=== PATIENT | female | born 1980 | race Caucasian/White ===

== ENCOUNTER 2016-03-09 17:38 | Emergency (ER) | payer SELFPAY ==
[~2016-03-09] VITALS: Ht 167.6 cm; Wt 59.1 kg
[2016-03-09 17:39] VITALS: BP 142/83; PULSE 81; RESP 15; TEMP 98.1; O2SAT 98
--- NOTE | 2016-03-09 18:19 | PD ---
HPI Chief Complaint: Psychiatric Symptoms Time Seen by Provider: 18:18 Travel History International Travel<30 days: No Contact w/Intl Traveler<30days: No Traveled to known affect area: No History of Present Illness HPI 35-year-old female with PMH of bipolar, anxiety, depression, IVDA presents to the ED for voluntary psychiatric evaluation. Patient endorses increasing anxiety, worsening over the last 3 days. She denies suicidal or homicidal ideation. She states that she has been out of her psychiatric medications for approximately a month. She endorses a recent episode of drug use relapse, attempting to inject meth into her right antecubital area. She denies headache , dizziness, fever, chills, testing, abdominal pain, nausea, vomiting, dysuria, back pain. Unsure of the last LMP. PFSH Past Medical History ?: Not LMP: 02/07/2016 Social History Tobacco Use: Yes Substance Use: Yes Allergies-Medications (Allergen,Severity, Reaction): Coded Allergies: No Known Allergies (Unverified , 03/09/16) Reported Meds & Prescriptions Reported Meds & Active Scripts Active Bactrim DS (Sulfamethoxazole-Trimethoprim) 800-160 Mg Tab 1 Tab PO BID Reported Prilosec (Omeprazole) 20 Mg Cap 20 Mg PO DAILY Advair Diskus Inh (Fluticasone-Salmeterol Inh) 250-50 Mcg/Blist Aer 1 Puff INH BID Rinse mouth after use. Trazodone (Trazodone HCl) 100 Mg Tab 100 Mg PO HS Prozac (Fluoxetine HCl) 20 Mg Cap 20 Mg PO DAILY Lisinopril 10 Mg Tab 10 Mg PO DAILY Gabapentin 600 Mg Tab 600 Mg PO QID Review of Systems Except as stated in HPI: all other systems reviewed are Neg Physical Exam Narrative GENERAL: Well-nourished, well-developed anxious white female in mild distress. PSYCHIATRIC: No delusional thought processes. No hallucinations. Anxious, restless. SKIN: Warm and dry. Multiple tattoos. The patient has sunburned cheeks. There is a single puncture wound with surrounding bruising just distal to the right antecubital space. Mildly indurated. No fluctuance. Erythema of the dorsal aspect of bilateral hands, localized over the MP joints. HEAD: Normocephalic. EYES: No scleral icterus. No injection or drainage. NECK: Supple, trachea midline. No JVD or lymphadenopathy. DENTAL: Multiple dental caries in the visible teeth. CARDIOVASCULAR: Regular rate and rhythm without murmurs, gallops, or rubs. 2+ DP and radial pulses bilaterally. RESPIRATORY: Breath sounds equal bilaterally. No accessory muscle use. GASTROINTESTINAL: Abdomen soft, non-tender, nondistended. Active bowel sounds. MUSCULOSKELETAL: No cyanosis, or edema. Patient maintains active flexion and extension of the fingers of bilateral hands. Sensation intact to light touch distally. Cap refill less than 2 seconds. The patient is ambulatory, moves extremities spontaneously. BACK: Nontender without obvious deformity. No CVA tenderness. Data Data Last Documented VS Vital Signs Date Time Temp Pulse Resp B/P Pulse Ox O2 Delivery O2 Flow Rate FiO2 03/09/16 17:39 98.1 81 15 142/83 98 Orders Complete Blood Count With Diff (03/09/16 17:51) Comprehensive Metabolic Panel (03/09/16 17:51) Urinalysis - C+S If Indicated (03/09/16 17:51) Drug Screen, Random Urine (03/09/16 17:51) Alcohol (Ethanol) (03/09/16 17:51) Psych Screen (03/09/16 17:51) Lorazepam (Ativan) (03/09/16 18:30) Ed Urine Pregnancytest Poc (03/09/16 18:30) Urine Culture (03/09/16 18:10) Sulfamet-Trimeth Ds 800-160 Mg (Bactrim (03/09/16 20:45) Labs Laboratory Tests Test 03/09/16 03/09/16 18:10 19:25 Urine Color YELLOW Urine Turbidity HAZY Urine pH 6.0 Urine Specific [place] 1.031 Urine Protein TRACE mg/dL Urine Glucose (UA) NEG mg/dL Urine Ketones 10 mg/dL Urine Occult Blood MOD Urine Nitrite NEG Urine Bilirubin NEG Urine Urobilinogen 2.0 MG/DL Urine Leukocyte Esterase SMALL Urine RBC 6 /hpf Urine WBC 9 /hpf Urine Squamous Epithelial 3 /hpf Cells Urine Bacteria RARE /hpf Urine Mucus MANY /lpf Microscopic Urinalysis Comment CULTURE INDICATED White Blood Count 11.3 TH/MM3 Red Blood Count 4.41 MIL/MM3 Hemoglobin 13.0 GM/DL Hematocrit 38.3 % Mean Corpuscular Volume 86.8 FL Mean Corpuscular Hemoglobin 29.4 PG Mean Corpuscular Hemoglobin 33.9 % Concent Red Cell Distribution Width 13.3 % Platelet Count 298 TH/MM3 Mean Platelet Volume 7.0 FL Neutrophils (%) (Auto) 58.0 % Lymphocytes (%) (Auto) 30.3 % Monocytes (%) (Auto) 8.9 % Eosinophils (%) (Auto) 2.3 % Basophils (%) (Auto) 0.5 % Neutrophils # (Auto) 6.6 TH/MM3 Lymphocytes # (Auto) 3.4 TH/MM3 Monocytes # (Auto) 1.0 TH/MM3 Eosinophils # (Auto) 0.3 TH/MM3 Basophils # (Auto) 0.1 TH/MM3 CBC Comment DIFF FINAL Differential Comment Sodium Level 136 MEQ/L Potassium Level 3.6 MEQ/L Chloride Level 105 MEQ/L Carbon Dioxide Level 22.4 MEQ/L Anion Gap 9 MEQ/L Blood Urea Nitrogen 14 MG/DL Creatinine 0.70 MG/DL Estimat Glomerular Filtration 96 ML/MIN Rate Random Glucose 77 MG/DL Calcium Level 8.5 MG/DL Total Bilirubin 0.5 MG/DL Aspartate Amino Transf 53 U/L (AST/SGOT) Alanine Aminotransferase 51 U/L (ALT/SGPT) Alkaline Phosphatase 60 U/L Total Protein 7.0 GM/DL Albumin 3.5 GM/DL Ethyl Alcohol Level LESS THAN 3 MG/DL MDM Medical Decision Making Medical Screen Exam Complete: Yes Emergency Medical Condition: Yes Differential Diagnosis cellulitis versus adjustment disorder versus anxiety versus bipolar versus depression versus dementia versus electrolyte disorder versus malingering versus mood disorder versus ODD versus psychosis versus PTSD versus schizophrenia versus schizoaffective disorder versus substance-induced mood disorder versus other Narrative Course 35-year-old female with PMH of bipolar, anxiety, depression, IVDA presents to the ED for voluntary psychiatric evaluation. Endorses increasing anxiety, worsening over the last 3 days. Denies suicidal or homicidal ideation. . She endorses a recent episode of drug use relapse, attempting to inject meth into her right antecubital area. She denies headache, dizziness, fever, chills, testing, abdominal pain, nausea, vomiting, dysuria, back pain. Unsure of the last LMP. Out of psych meds for approximately one month. Vitals reviewed. Physical exam reveals an anxious, restless, tearful white female. There is a single puncture wound just distal to the antecubital space on the right arm. This is surrounded by a small area of bruising but no signs of active infection. There is erythema of the dorsal MP joints of bilateral hands without visible puncture wound, warmth, lymphatic streaking, limitations to range of motion, loss of sensation. Remaining physical exam is otherwise unremarkable. CBC shows WBC 11.3. Hemoglobin 13.0. No concerning abnormalities of the CMP. Alcohol less than 3. UA hazy, moderate occult blood , small leukocyte esterase, 9 CBC, rare bacteria. We'll treat with Bactrim DS twice a day 3 days. First dose administered in ED. Tox screen pending. Patient is medically clear for psychiatric evaluation. Please see psych notes for disposition. Diagnosis Primary Impression: Urinary tract infection Qualified Code: N39.0 - Urinary tract infection without hematuria, site unspecified Additional Impressions: Anxiety Medical clearance for psychiatric admission Scripts Sulfamethoxazole-Trimethoprim (Bactrim DS)800-160 Mg Tab1 Tab PO BID #6 TAB Ref 0 Prov:Jonathan Frye MD 03/09/16 Maty Licae Mar 09, 2016 18:19
[2016-03-09] MEDS ORDERED: LORazepam 2 MG TAB PO ONE (18:30)
[2016-03-09 18:55] LABS: BACTERIA, URINE RARE /hpf; BLOOD, URINE MOD (NEG); COMMENT (UR) CULTURE INDICATED; CULTURE IF INDICATED CULTURE INDICATED; GLUCOSE,URINE NEG (NEG); KETONE, URINE 10 mg/dL (NEG); MUCUS URINE MANY /lpf (OCC); NITRITE,URINE NEG (NEG); SQUAMOUS EPITHELIAL CELL URINE 3 /hpf (0-5); URINE COLOR YELLOW (YELLW/STRAW)
[2016-03-09] MEDS ORDERED: ADVA250A INH (19:11)
[2016-03-09] MEDS ORDERED: PROZ20CA11 PO (19:11)
[2016-03-09] MEDS ORDERED: PRIL20CA9 PO (19:11)
[2016-03-09] MEDS ORDERED: LISI10TA3 PO (19:11)
[2016-03-09] MEDS ORDERED: TRAZ100T4 PO (19:11)
[2016-03-09] MEDS ORDERED: GABA600T PO (19:11)
[2016-03-09 19:46] LABS: AUTOMATED NEUTROPHIL # 6.6 TH/MM3 (1.8-7.7); BASOPHIL # 0.1 TH/MM3 (0-0.2); BASOPHIL % 0.5 % (0.0-2.0); EOSINOPHIL # 0.3 TH/MM3 (0-0.4); EOSINOPHIL % 2.3 % (0.0-4.0); HEMATOCRIT 38.3 % (35.0-46.0); HEMO FLAGS DIFF FINAL; LYMPH % 30.3 % (9.0-44.0); LYMPHOCYTE # 3.4 TH/MM3 (1.0-4.8); MEAN CELL VOLUME 86.8 FL (80.0-100.0); MEAN CORPUSCULAR HEMOGLOBIN 29.4 PG (27.0-34.0); MEAN CORPUSCULAR HGB CONC 33.9 % (32.0-36.0); MONO % 8.9 % (0.0-8.0); PLATELET COUNT 298 TH/MM3 (150-450); RED BLOOD COUNT 4.41 MIL/MM3 (4.00-5.30); RED CELL DISTRIBUTION WIDTH 13.3 % (11.6-17.2); WHITE BLOOD COUNT 11.3 TH/MM3 (4.0-11.0)
[2016-03-09 20:29] LABS: ANION GAP 9 MEQ/L (5-15); BICARBONATE 22.4 MEQ/L (21.0-32.0); BLOOD UREA NITROGEN 14 MG/DL (7-18); CHLORIDE 105 MEQ/L (98-107); GLOMERULAR FILTRATION RATE 96 ML/MIN (>89); POTASSIUM 3.6 MEQ/L (3.5-5.1); SODIUM (NA) 136 MEQ/L (136-145)
[2016-03-09 20:33] LABS: ALKALINE PHOSPHATASE 60 U/L (45-117); ALT (GPT) 51 U/L (10-53); AST (GOT) 53 U/L (15-37); TOTAL BILIRUBIN ADULT 0.5 MG/DL (0.2-1.0)
[2016-03-09] MEDS ORDERED: BACT800T5 PO (20:36)
[2016-03-09] MEDS ORDERED: SULFAMETHOXAZOLE-TRIMETHOPRIM DS 800-160 MG TAB PO ONE (20:45)
[2016-03-09 21:33] LABS: AMPHETAMINE, URINE POS (NEG); BARBITURATES, URINE NEG (NEG); COCAINE, URINE POS (NEG)
[2016-03-09 22:47] VITALS: BP 139/79; PULSE 82; RESP 16; O2SAT 96
== END 2016-03-09 23:03 | disposition home or self-care (01) ==
LOC: NETRI 17:38 → NEPB 23:03
DX: Z02.89 Encounter for other administrative examinations (principal); N39.0 Urinary tract infection, site not specified; F41.9 Anxiety disorder, unspecified; Z72.0 Tobacco use; Z86.59 Personal history of other mental and behavioral disorders
CPT/HCPCS: 80053; 80307; 80320; 81001; 84703; 85025; 87086; 99283